=== PATIENT | male | born 1965 | race Caucasian/White ===

== ENCOUNTER 2017-06-03 15:05 | Emergency (ER) | payer BC ==
[2017-06-03 15:15] VITALS: BP 135/95; PULSE 85; TEMP 98.1; BMI 29.9
--- NOTE | 2017-06-03 15:24 | PDOC ---
History of Present Illness <Kaycee Skaggs - Last Filed: 06/03/17 17:36> - General History Source: Patient Exam Limitations: No Limitations - History of Present Illness Initial Comments: 06/03/17 18:11 "51 year old male, with significant past medical history of HTN and gout, who presents to the emergency room with left sided neck pain that started this morning after waking up. He states that he feels that he ""slept wrong on it."" The patient reports that his neck has become increasingly stiff and painful throughout the day. He reports taking 2 tylenol and 1 of his 's muscle relaxers without any relief. He also took a hot shower and iced his neck with minimal relief. Reports a sensation that his trapezium muscle is very tight. Denies any numbness, weakness, and tingling down the extremities. Denies trauma. Denies chest pain, SOB. Denies back pain. Denies fever, chills, nausea, vomiting. Allergies: NKDA PCP: Dr. Kelly " <Kenia Arriaga - Last Filed: 06/03/17 18:12> - General Chief Complaint: Pain Stated Complaint: NECK PAIN Time Seen by Provider: 06/03/17 15:23 Past History - Past Medical History COPD: No HTN: Yes Other medical history: GOUT FOOT - Suicide/Smoking/Psychosocial Hx Smoking History: Never smoked Have you smoked in the past 12 months: No Hx Alcohol Use: No Drug/Substance Use Hx: No <Kaycee Skaggs - Last Filed: 06/03/17 17:36> <Kenia Arriaga - Last Filed: 06/03/17 18:12> - Past Medical History Allergies/Adverse Reactions: Allergies Allergy/AdvReac Type Severity Reaction Status Date / Time No Known Allergies Allergy Verified 06/03/17 15:08 Home Medications: Ambulatory Orders Allopurinol [Zyloprim -] mg PO DAILY 06/03/17 Bp Pill mg PO DAILY 06/03/17 Diazepam [Valium] 2 mg PO BID PRN #8 tablet MDD 2 tablets 06/03/17 Naproxen [Naprosyn -] 500 mg PO BID #14 tablet 06/03/17 Review of Systems - Review of Systems Able to Perform ROS?: Yes Comments:: 06/03/17 18:11 GENERAL/CONSTITUTIONAL: No fever or chills. No weakness. HEAD, EYES, EARS, NOSE AND THROAT: No change in vision. No ear pain or discharge. No sore throat. GASTROINTESTINAL: No nausea, vomiting, diarrhea or constipation. GENITOURINARY: No dysuria, frequency, or change in urination. CARDIOVASCULAR: No chest pain or shortness of breath. RESPIRATORY: No cough, wheezing, or hemoptysis. MUSCULOSKELETAL: +left sided neck pain. No back pain. SKIN: No rash NEUROLOGIC: No headache, vertigo, loss of consciousness, or change in strength/ sensation. ENDOCRINE: No increased thirst. No abnormal weight change. HEMATOLOGIC/LYMPHATIC: No anemia, easy bleeding, or history of blood clots. ALLERGIC/IMMUNOLOGIC: No hives or skin allergy. <Kenia Arriaga - Last Filed: 06/03/17 18:12> *Physical Exam - Vital Signs Last Vital Signs Temp Pulse Resp BP Pulse Ox 98.1 F 85 18 135/95 100 06/03/17 15:05 06/03/17 15:05 06/03/17 15:05 06/03/17 15:05 06/03/17 15:05 <Kaycee Skaggs - Last Filed: 06/03/17 17:36> - Vital Signs Last Vital Signs Temp Pulse Resp BP Pulse Ox 98.1 F 85 18 135/95 100 06/03/17 15:05 06/03/17 15:05 06/03/17 15:05 06/03/17 15:05 06/03/17 15:05 - Physical Exam Comments: 06/03/17 18:12 GENERAL: Awake, alert, and fully oriented, in no acute distress HEAD: No signs of trauma EYES: PERRLA, EOMI, sclera anicteric, conjunctiva clear ENT: Auricles normal inspection, hearing grossly normal, nares patent, oropharynx clear without exudates. Moist mucosa NECK: Normal ROM, supple, no lymphadenopathy, JVD, or masses LUNGS: Breath sounds equal, clear to auscultation bilaterally. No wheezes, and no crackles HEART: Regular rate and rhythm, normal S1 and S2, no murmurs, rubs or gallops ABDOMEN: Soft, nontender, normoactive bowel sounds. No guarding, no rebound. No masses EXTREMITIES: Normal range of motion, no edema. No clubbing or cyanosis. No cords , erythema, or tenderness BACK: No midline spinal tenderness in cervical/thoracic/lumbar region NEUROLOGICAL: Normal speech, cranial nerves intact, negative pronator drift, 5/ 5 strength in all 4 extremities, normal sensation to light touch in all 4 extremities, normal cerebellar exam, normal gait, normal reflexes and tone MSK: ttp and tightness along left trapezium muscle SKIN: Warm, Dry, normal turgor, no rashes or lesions noted. <Kenia Arriaga - Last Filed: 06/03/17 18:12> ED Treatment Course - LABORATORY CBC & Chemistry Diagram: 06/03/17 15:41 06/03/17 15:41 <Kaycee Skaggs - Last Filed: 06/03/17 17:36> - LABORATORY CBC & Chemistry Diagram: 06/03/17 15:41 06/03/17 15:41 - ADDITIONAL ORDERS Additional order review: Laboratory Results 06/03/17 15:41 Sodium 133 L Potassium 4.0 Chloride 100 Carbon Dioxide 25 Anion Gap 8 BUN 19 H D Creatinine 1.4 H D Creat Clearance w eGFR 53.86 Random Glucose 93 Calcium 9.6 Total Bilirubin 0.8 AST 38 ALT 41 H D Alkaline Phosphatase 55 Total Protein 7.8 Albumin 4.2 06/03/17 15:41 RBC 5.71 H MCV 81.8 MCHC 33.8 RDW 13.5 MPV 9.4 Neutrophils % 58.0 D Lymphocytes % 28.9 D Monocytes % 7.7 Eosinophils % 4.3 Basophils % 1.1 - Medications Given in the ED: ED Medications Discontinued Medications Generic Name Dose Route Start Last Admin Trade Name Mohini PRN Reason Stop Dose Admin Diazepam 5 mg 06/03/17 15:43 06/03/17 16:02 Valium Injection - IVPUSH 06/03/17 15:44 Not Given ONCE ONE Diazepam 5 mg 06/03/17 16:00 06/03/17 16:02 Valium - PO 06/03/17 16:01 5 mg ONCE ONE Administration Diphenhydramine HCl 25 mg 06/03/17 15:44 06/03/17 15:59 Benadryl Injection - IVPUSH 06/03/17 15:45 25 mg ONCE ONE Administration Ketorolac Tromethamine 30 mg 06/03/17 15:43 06/03/17 15:58 Toradol Injection - IVPUSH 06/03/17 15:44 30 mg ONCE ONE Administration <Kenia Arriaga - Last Filed: 06/03/17 18:12> Medical Decision Making - Medical Decision Making 06/03/17 16:08 51-year-old male with a history of hypertension presents with left sided trapezius pain after waking up this morning. Vitals unremarkable. Exam with tenderness to palpation and tightness along the L trapezius muscle, consistent with muscle strain vs spasm. Pt is neurovascularly intact, no radiation of pain or numbness down LUE. No midline cervical ttp, no trauma. Will provide symptomatic control and reassess. 06/03/17 17:36 Pt reports significant improvement in neck pain. Requests DC. Likely muscle spasm. Pt ambulating in the ED with steady gait, lives [address] from here and feels okay to drive. I discussed the physical exam findings, ancillary test results and final diagnoses with the patient. I answered all of the patient's questions. The patient was satisfied with the care received and felt comfortable with the discharge plan and treatment plan. The patient will call their primary care physician within 24 hours to arrange follow-up and will return to the Emergency Department with any new, persistent or worsening symptoms. <Kaycee Skaggs - Last Filed: 06/03/17 17:36> *DC/Admit/Observation/Transfer - Discharge Dispostion Admit: No - Attestations Physician Attestion: 06/03/17 17:43 I, Dr. Kaycee Skaggs MD, attest that this document has been prepared under my direction and personally reviewed by me in its entirety. I further attest, that it accurately reflects all work, treatment, procedures and medical decision -making performed by me. <Kaycee Skaggs - Last Filed: 06/03/17 17:36> - Attestations Scribe Attestion: 06/03/17 18:12 Documentation prepared by GONZALEZ Vail, acting as medical anthropology director for Kaycee Skaggs MD. <Kenia Arriaga - Last Filed: 06/03/17 18:12> Diagnosis at time of Disposition: Neck muscle strain - Discharge Dispostion Disposition: HOME Condition at time of disposition: Stable - Prescriptions Prescriptions: Diazepam [Valium] 2 mg PO BID PRN #8 tablet MDD 2 tablets PRN Reason: Pain Naproxen [Naprosyn -] 500 mg PO BID #14 tablet - Referrals Referrals: Lito Klely MD [Primary Care Provider] - - Patient Instructions Printed Discharge Instructions: DI for Neck Pain Additional Instructions: Follow-up with Dr. Kelly within 2-3 days. You have been prescribed a muscle relaxer by the name of Valium. This medication may make you drowsy. Do not operate a car or plane or any heavy machinery while taking this medication. Return to the emergency department if you have any new, worsening or concerning symptoms. - Post Discharge Activity
[2017-06-03] MEDS ORDERED: KETOROLAC TROMETHAMINE 15 MG/ML VIAL IVPUSH ONE (15:43)
[2017-06-03] MEDS ORDERED: diazePAM CARPU-JECT 10 MG/2 ML DISP.SYRIN IVPUSH ONE (15:43)
[2017-06-03] MEDS ORDERED: KETOROLAC TROMETHAMINE 30 MG/1 ML VIAL ONE (15:50)
[2017-06-03 15:54] LABS: BASOPHIL 1.1 % (0-2.0); EOSINOPHIL 4.3 % (0-4.5); MCH 27.7 pg (25.7-33.7); MCHC 33.8 g/dl (32.0-35.9); MEAN CELL VOLUME 81.8 fl (80-96); MEAN PLT VOLUME 9.4 fl (7.5-11.1); PLATELET COUNT 240 K/MM3 (134-434); RDW 13.5 % (11.9-15.9); WHITE BLOOD COUNT 7.9 K/mm3 (4.0-10.8)
[2017-06-03] MEDS ORDERED: diazePAM 5 MG TABLET ONE (15:54)
[2017-06-03] MEDS ORDERED: diazePAM 5 MG TABLET PO ONE (16:00)
[2017-06-03 16:32] LABS: ALBUMIN 4.2 g/dl (3.5-5.0); ALK PHOS 55 U/L (32-92); ANION GAP 8 (8-16); BILIRUBIN,TOTAL 0.8 mg/dl (0.2-1.0); CALCIUM 9.6 mg/dl (8.4-10.2); CO2 25 mmol/L (22-28); CREATININE 1.4 mg/dl (0.6-1.3); GLUCOSE,RANDOM 93 mg/dl (74-106); SGOT/AST 38 U/L (10-42); SGPT/ALT 41 U/L (10-40); TOT PROT 7.8 g/dl (6.4-8.3)
== END 2017-06-03 17:50 | disposition home or self-care (01) ==
LOC: FER 15:05
PROC: 3E033GC Introduction of Other Therapeutic Substance into Peripheral Vein, Percutaneous Approach (ICD-10-PCS; principal; 2017-06-03)
PROC: 3E0333Z Introduction of Anti-inflammatory into Peripheral Vein, Percutaneous Approach (ICD-10-PCS; 2017-06-03)
DX: S16.1XXA Strain of muscle, fascia and tendon at neck level, initial encounter (principal); X58.XXXA Exposure to other specified factors, initial encounter; Y93.9 Activity, unspecified; Y92.9 Unspecified place or not applicable; I10 Essential (primary) hypertension
CPT/HCPCS: 36415; 80053; 85025; 99283-25

== ENCOUNTER 2018-05-26 07:46 | Day surgery (SDC) | payer BC ==
[2018-05-22 11:02] VITALS: BMI 30.8
[2018-05-26] MEDS ORDERED: PROPOFOL 20 ML ONE ×2 (08:01)
[2018-05-26 09:43] VITALS: TEMP 97.9
[2018-05-26 10:11] VITALS: BP 124/89; PULSE 71
--- NOTE | 2018-05-29 10:55 | PATH ---
Surgical Pathology Report Patient Name: PRADIP GRIFFIN [facility]. Rec. #: [id number] /Age/Gender: 1965 (Age: 52) / M Account: [id number] Location: [facility] Taken: 05/26/2018 Received: 05/26/2018 Reported: 05/29/2018 Physicians: Bong Dickerson M.D. Specimen(s) Received A: ILEOCECAL VALVE POLYP B: SPLENIC FLEXURE POLYP Clinical History Rule out colon cancer Postoperative diagnosis: Polyps Final Diagnosis A. ILEOCECAL VALVE, POLYP, BIOPSY: SESSILE SERRATED POLYP. B. SPLENIC FLEXURE, POLYP, BIOPSY: TUBULAR ADENOMA. Electronically Signed Alia Rivera M.D. Gross Description A. Received in formalin, labeled "polyp ileocecal valve" is a lincoln, irregular portion of soft tissue measuring 0.6 cm. in greatest dimension. The specimen is submitted in toto in one cassette. B. Received in formalin, labeled "splenic flexure polyp" is a lincoln, irregular portion of soft tissue measuring 0.6 cm. in greatest dimension. The specimen is submitted in toto in one cassette. 05/27/2018 saudi05/27/2018
== END 2018-05-26 10:21 | disposition home or self-care (01) ==
LOC: FASU-ENDO 07:46
PROVIDERS: ATTEND Internal Medicine Gastroenterology
PROC: 0DBL8ZX Excision of Transverse Colon, Via Natural or Artificial Opening Endoscopic, Diagnostic (ICD-10-PCS; 2018-05-26)
PROC: 0DBB8ZX Excision of Ileum, Via Natural or Artificial Opening Endoscopic, Diagnostic (ICD-10-PCS; principal; 2018-05-26 08:30)
DX: Z12.11 Encounter for screening for malignant neoplasm of colon (principal); D12.3 Benign neoplasm of transverse colon; D12.6 Benign neoplasm of colon, unspecified
CPT/HCPCS: 88305-TC

== ENCOUNTER 2023-05-02 22:16 | Emergency (ER) | payer BC ==
[2023-05-02 22:25] VITALS: BP 132/90; PULSE 89; RESP 16; TEMP 98.1; BMI 31.6
[2023-05-02] MEDS ORDERED: LIDOCAINE HCL 2% JELLY 10 ML CARTRIDGE ONE (23:02)
[2023-05-02] MEDS ORDERED: LIDOCAINE HCL 2% JELLY 10 ML CARTRIDGE UR ONE (23:02)
[2023-05-02] MEDS ORDERED: IBUPROFEN 400 MG TABLET (FP) PO ONE ×2 (23:11→23:14)
== END 2023-05-02 23:25 | disposition home or self-care (01) ==
LOC: FER 22:16
DX: R30.0 Dysuria (principal); R39.198 Other difficulties with micturition
CPT/HCPCS: 81003; 81015; 87086; 99283-25